=== PATIENT | female | born 1945 | race Caucasian/White ===

== ENCOUNTER 2023-06-06 21:31 | Inpatient (IN) | payer OTHER ==
[~2023-06-06] VITALS: Ht 167.6 cm; Wt 54.0 kg
[~2023-06-06 21:31] MED LIST: APIX5TAB4 PO; DIGO250T PO; DILT60TA3 PO; DOXY100C5 PO; FURO-150 PO; PRED20TA PO; PRO40 PO; TEMA15CA5 PO
[2023-06-06] MEDS ORDERED: ONDANSETRON HCL 4 MG/2 ML VIAL ONE (21:37)
[2023-06-06 21:52] VITALS: BP_SYST 140; PULSE 70; RESP 18; TEMP 98.3; O2SAT 96
[2023-06-06] MEDS ORDERED: NALOXONE HCL 2 MG/2 ML SYR IVP ONE (22:15)
[2023-06-06] MEDS ORDERED: ALBUTEROL SULFATE 0.083% 2.5 MG/3 ML VIAL.NEB INH ONE (22:15)
[2023-06-06] MEDS ORDERED: IPRATROPIUM BROM 0.5 MG/2.5 ML VIAL.NEB (ATROVENT) INH ONE (22:15)
[2023-06-06] MEDS ORDERED: ONDANSETRON HCL 4 MG/2 ML VIAL IVP ONE (22:15)
[2023-06-06] MEDS ORDERED: OLANZapine IntraMuscular 10 MG VIAL (FOR I.M. INJECTION ONLY) IM ONE (22:45)
[2023-06-06 22:53] LABS: BASOPHILS # (AUTO) 0.1 K/uL (0.0-0.2); BASOPHILS % (AUTO) 0.7 % (0.0-2.0); EOSINOPHILS % (AUTO) 0.1 % (0.0-4.0); HEMATOCRIT 46.5 % (36-48); HEMOGLOBIN 14.7 g/dL (12.0-16.0); LYMPHOCYTES # (AUTO) 1.8 K/uL (1.0-5.5); LYMPHOCYTES % (AUTO) 14.7 % (20.5-51.5); MEAN CORPUSCULAR HEMOGLOBIN 29 pg (27-31); MEAN CORPUSCULAR HGB CONC 32 % (32-36); MEAN CORPUSCULAR VOLUME 91 fL (79.0-98.0); MONOCYTES # (AUTO) 0.9 K/uL (0.0-1.0); MONOCYTES % (AUTO) 6.8 % (1.7-9.3); NEUTROPHILS # (AUTO) 9.7 K/uL (1.8-7.7); NEUTROPHILS % (AUTO) 77.7 % (40.0-70.0); PLATELET COUNT (AUTO) 360 K/uL (130-430); RED BLOOD CELL COUNT(AUTO) 5.14 MIL/uL (4.2-6.2); RED CELL DISTRIBUTION WIDTH 14.9 % (9.0-15.0); WHITE BLOOD COUNT (AUTO) 12.5 K/uL (4.8-10.8)
[2023-06-06 23:02] LABS: ALANINE AMINOTRANSFERASE 9 U/L (12-78); ALBUMIN 3.3 g/dL (3.4-4.8); ANION GAP 5 (5-15); ASPARTATE AMINOTRANSFERASE 20 U/L (10-37); CALCIUM 10.1 mg/dL (8.4-11.0); CARBON DIOXIDE 29 mmol/L (23-29); CHLORIDE 95 mmol/L (98-107); CREATININE 0.91 mg/dL (0.55-1.30); GLUCOSE 112 mg/dL (74-106); POTASSIUM 4.3 mmol/L (3.5-5.1); SODIUM SERUM 129 mmol/L (136-145); TOTAL BILIRUBIN 0.4 mg/dL (0.0-1.0); TOTAL PROTEIN, SERUM 8.1 g/dL (6.4-8.3); UREA NITROGEN, BLOOD 16 mg/dL (8-21)
[2023-06-06 23:04] LABS: BILIRUBIN,DIRECT 0.3 mg/dL (0.0-0.3); SALICYLATE 2 mg/dL (3-30)
[2023-06-06 23:09] LABS: INR 1.6 (0.8-1.2); PROTHROMBIN TIME 16.1 SECS (9.5-12.5)
[2023-06-06 23:59] LABS: BILIRUBIN,URINE 1+ (NEGATIVE); CLARITY/URINE CLEAR (CLEAR); COLOR,URINE YELLOW (YELLOW); GLUCOSE,URINE NEGATIVE (NEGATIVE); KETONES,URINE 1+ (NEGATIVE); LEUKOCYTE ESTERASE ,URINE TRACE (NEGATIVE); NITRITE, URINE NEGATIVE (NEGATIVE); PROTEIN URINE 1+ (NEGATIVE)
[2023-06-07 00:17] LABS: BLOOD, URINE TRACE (NEGATIVE)
[2023-06-07 00:26] LABS: ACETAMINOPHEN < 1 ug/mL (1-30)
[2023-06-07 00:37] LABS: BACTERIA,URINE FEW /HPF (None Seen)
[2023-06-07] MEDS ORDERED: HYDROcodone/ACETAMIN 10-325 MG TAB PO PRN (00:45)
[2023-06-07] MEDS ORDERED: ONDANSETRON HCL 4 MG/2 ML VIAL IVP PRN (00:45)
[2023-06-07] MEDS ORDERED: MORPHINE 2 MG/ML INJ. SYRINGE IVP PRN (00:45)
[2023-06-07] MEDS ORDERED: ACETAMINOPHEN 325 MG TABLET PO PRN (00:45)
[2023-06-07] MEDS ORDERED: methylPREDNISolone SOD SUCC/PF 62.5 MG/ML VIAL IVP ONE ×2 (00:45→06:00)
[2023-06-07] MEDS ORDERED: HYDROcodone/ACETAMIN 5-325 MG TAB (NORCO/ VICODIN) PO PRN (00:45)
[2023-06-07] MEDS ORDERED: cefTRIAXone 1 GM in D5W 50 ML IV ONE (00:45)
[2023-06-07] MEDS ORDERED: IPRATROPIUM BROM 0.5 MG/2.5 ML VIAL.NEB (ATROVENT) INH ONE (00:54)
[2023-06-07] MEDS ORDERED: ALBUTEROL SULFATE 0.083% 2.5 MG/3 ML VIAL.NEB INH ONE (00:54)
[2023-06-07 01:02] LABS: ABG O2 SAT% ESTIMATE 91.2 % (94.0-100.0); BLOOD GAS BASE EXCESS 0.7 mmol/L (-3.0-3.0); BLOOD GAS HCO3 27.1 mmol/L (21.0-27.0); BLOOD GAS PCO2 50.2 mmHg (35.0-45.0)
[2023-06-07] MEDS ORDERED: cefTRIAXone 1 GM VIAL ONE (01:08)
[2023-06-07] MEDS: DILTIAZEM HCL 60 MG TABLET PO SCH ×4 (01:11→23:34)
[2023-06-07] MEDS: DIGOXIN 0.25 MG TABLET PO SCH ×2 (01:12→09:21)
[2023-06-07 02:53] VITALS: BP_SYST 147; PULSE 88; O2SAT 93
[2023-06-07 03:52] LABS: COVID19 ANTIGEN SOFIA FIA NEGATIVE (NEGATIVE)
[2023-06-07 04:04] LABS: INFLUENZA TYPE A Negative (NEGATIVE); INFLUENZA TYPE B NEGATIVE (NEGATIVE)
[2023-06-07] MEDS ORDERED: AMPICILLIN SODIUM/SULBACTAM NA 3 GM VIAL IM SCH (06:00)
[2023-06-07 08:05] VITALS: O2SAT 94
[2023-06-07] MEDS: IPRATROPIUM/ALBUTEROL SULFATE 3 ML AMPUL.NEB (DUONEB) INH SCH ×3 (08:05→20:11)
[2023-06-07] MEDS: APIXABAN 2.5 MG TABLET PO SCH ×2 (10:04→23:33)
[2023-06-07 13:04] VITALS: O2SAT 94
[2023-06-07] MEDS: AMPICILLIN SODIUM/SULBACTAM NA 3 GM in NS 100 ML IV SCH (14:15)
[2023-06-07 23:00] VITALS: O2SAT 91
[2023-06-07] MEDS ORDERED: AMPICILLIN SODIUM/SULBACTAM NA 3 GM VIAL ONE (23:53)
[2023-06-08] VITALS (9 sets, daily range): BP systolic 136–153; PULSE 58–80; RESP 18–22; TEMP 97–97.7; O2SAT 89–98
[2023-06-08] MEDS: AMPICILLIN SODIUM/SULBACTAM NA 3 GM in NS 100 ML IV SCH ×2 (01:04→05:37)
[2023-06-08 06:49] LABS: BASOPHILS % (AUTO) 0.2 % (0.0-2.0); HEMATOCRIT 42.5 % (36-48); HEMOGLOBIN 13.7 g/dL (12.0-16.0); LYMPHOCYTES # (AUTO) 1.3 K/uL (1.0-5.5); LYMPHOCYTES % (AUTO) 8.1 % (20.5-51.5); MEAN CORPUSCULAR HEMOGLOBIN 29 pg (27-31); MEAN CORPUSCULAR HGB CONC 32 % (32-36); MEAN CORPUSCULAR VOLUME 89 fL (79.0-98.0); MONOCYTES # (AUTO) 0.4 K/uL (0.0-1.0); MONOCYTES % (AUTO) 2.4 % (1.7-9.3); NEUTROPHILS # (AUTO) 14.2 K/uL (1.8-7.7); NEUTROPHILS % (AUTO) 89.3 % (40.0-70.0); PLATELET COUNT (AUTO) 335 K/uL (130-430); RED BLOOD CELL COUNT(AUTO) 4.77 MIL/uL (4.2-6.2); RED CELL DISTRIBUTION WIDTH 14.8 % (9.0-15.0); WHITE BLOOD COUNT (AUTO) 15.9 K/uL (4.8-10.8)
[2023-06-08] MEDS: IPRATROPIUM/ALBUTEROL SULFATE 3 ML AMPUL.NEB (DUONEB) INH SCH ×3 (07:40→19:51)
[2023-06-08 07:55] LABS: ALANINE AMINOTRANSFERASE 9 U/L (12-78); ALBUMIN 2.7 g/dL (3.4-4.8); ANION GAP 10 (5-15); ASPARTATE AMINOTRANSFERASE 20 U/L (10-37); CALCIUM 10.2 mg/dL (8.4-11.0); CARBON DIOXIDE 27 mmol/L (23-29); CHLORIDE 96 mmol/L (98-107); CREATININE 0.87 mg/dL (0.55-1.30); GLUCOSE 107 mg/dL (74-106); POTASSIUM 4.8 mmol/L (3.5-5.1); SODIUM SERUM 133 mmol/L (136-145); TOTAL BILIRUBIN 0.4 mg/dL (0.0-1.0); TOTAL PROTEIN, SERUM 6.9 g/dL (6.4-8.3); UREA NITROGEN, BLOOD 22 mg/dL (8-21)
[2023-06-08 08:32] LABS: ERYTHROCYTE SEDIMENTATION RATE 39 MM/HR (0-20)
[2023-06-08] MEDS: DIGOXIN 0.25 MG TABLET PO SCH (08:47)
[2023-06-08] MEDS: DILTIAZEM HCL 60 MG TABLET PO SCH ×3 (08:47→20:06)
[2023-06-08] MEDS: APIXABAN 2.5 MG TABLET PO SCH ×2 (08:51→20:10)
[2023-06-08] MEDS: HYDROcodone/ACETAMIN 5-325 MG TAB (NORCO/ VICODIN) PO PRN ×2 (14:57→20:06)
[2023-06-08] MEDS: PIPERACILLIN/TAZO 2.25G/DEX-IS 50 ML IV SCH (19:41)
[2023-06-08] MEDS: predniSONE 20 MG TABLET PO SCH (20:06)
[2023-06-09] VITALS (8 sets, daily range): BP systolic 131–159; PULSE 63–70; RESP 16–20; TEMP 97.4–98.2; O2SAT 91–97
[2023-06-09] MEDS: PIPERACILLIN/TAZO 2.25G/DEX-IS 50 ML IV SCH ×4 (00:31→17:36)
[2023-06-09] MEDS: IPRATROPIUM/ALBUTEROL SULFATE 3 ML AMPUL.NEB (DUONEB) INH SCH ×4 (01:11→20:01)
[2023-06-09] MEDS: HYDROcodone/ACETAMIN 5-325 MG TAB (NORCO/ VICODIN) PO PRN ×3 (06:26→20:09)
[2023-06-09 06:40] LABS: BASOPHILS % (AUTO) 0.3 % (0.0-2.0); HEMATOCRIT 40.5 % (36-48); HEMOGLOBIN 13.2 g/dL (12.0-16.0); LYMPHOCYTES # (AUTO) 1.3 K/uL (1.0-5.5); LYMPHOCYTES % (AUTO) 12.6 % (20.5-51.5); MEAN CORPUSCULAR HEMOGLOBIN 29 pg (27-31); MEAN CORPUSCULAR HGB CONC 33 % (32-36); MEAN CORPUSCULAR VOLUME 89 fL (79.0-98.0); MONOCYTES # (AUTO) 0.3 K/uL (0.0-1.0); MONOCYTES % (AUTO) 2.6 % (1.7-9.3); NEUTROPHILS # (AUTO) 8.4 K/uL (1.8-7.7); NEUTROPHILS % (AUTO) 84.5 % (40.0-70.0); PLATELET COUNT (AUTO) 338 K/uL (130-430); RED BLOOD CELL COUNT(AUTO) 4.56 MIL/uL (4.2-6.2); RED CELL DISTRIBUTION WIDTH 14.7 % (9.0-15.0)
[2023-06-09 06:56] LABS: ANION GAP 8 (5-15); CALCIUM 9.9 mg/dL (8.4-11.0); CARBON DIOXIDE 29 mmol/L (23-29); CHLORIDE 97 mmol/L (98-107); CREATININE 0.81 mg/dL (0.55-1.30); GLUCOSE 116 mg/dL (74-106); POTASSIUM 4.6 mmol/L (3.5-5.1); SODIUM SERUM 134 mmol/L (136-145); UREA NITROGEN, BLOOD 17 mg/dL (8-21)
[2023-06-09] MEDS: predniSONE 20 MG TABLET PO SCH ×2 (09:33→20:09)
[2023-06-09] MEDS: APIXABAN 2.5 MG TABLET PO SCH ×2 (09:35→20:14)
[2023-06-09] MEDS: DIGOXIN 0.25 MG TABLET PO SCH (09:38)
[2023-06-09] MEDS: DILTIAZEM HCL 60 MG TABLET PO SCH ×3 (09:38→20:08)
[2023-06-09 11:31] LABS: ERYTHROCYTE SEDIMENTATION RATE 29 MM/HR (0-20)
[2023-06-10] VITALS (7 sets, daily range): BP systolic 127–136; PULSE 61–71; RESP 18–20; TEMP 97.7–98.2; O2SAT 88–98
[2023-06-10] MEDS: PIPERACILLIN/TAZO 2.25G/DEX-IS 50 ML IV SCH ×3 (00:19→11:29)
[2023-06-10 06:22] LABS: BASOPHILS % (AUTO) 0.2 % (0.0-2.0); HEMATOCRIT 40.8 % (36-48); HEMOGLOBIN 13.2 g/dL (12.0-16.0); LYMPHOCYTES # (AUTO) 1.2 K/uL (1.0-5.5); LYMPHOCYTES % (AUTO) 14.6 % (20.5-51.5); MEAN CORPUSCULAR HEMOGLOBIN 29 pg (27-31); MEAN CORPUSCULAR HGB CONC 33 % (32-36); MEAN CORPUSCULAR VOLUME 89 fL (79.0-98.0); MONOCYTES # (AUTO) 0.3 K/uL (0.0-1.0); MONOCYTES % (AUTO) 3.1 % (1.7-9.3); NEUTROPHILS % (AUTO) 82.1 % (40.0-70.0); PLATELET COUNT (AUTO) 332 K/uL (130-430); RED CELL DISTRIBUTION WIDTH 15.4 % (9.0-15.0); WHITE BLOOD COUNT (AUTO) 8.5 K/uL (4.8-10.8)
[2023-06-10] MEDS: HYDROcodone/ACETAMIN 5-325 MG TAB (NORCO/ VICODIN) PO PRN (06:29)
[2023-06-10 06:40] LABS: ANION GAP 8 (5-15); CARBON DIOXIDE 28 mmol/L (23-29); CHLORIDE 98 mmol/L (98-107); CREATININE 0.69 mg/dL (0.55-1.30); GLUCOSE 122 mg/dL (74-106); POTASSIUM 4.5 mmol/L (3.5-5.1); SODIUM SERUM 134 mmol/L (136-145); UREA NITROGEN, BLOOD 11 mg/dL (8-21)
[2023-06-10] MEDS: IPRATROPIUM/ALBUTEROL SULFATE 3 ML AMPUL.NEB (DUONEB) INH SCH ×3 (07:17→13:42)
[2023-06-10 07:59] LABS: ERYTHROCYTE SEDIMENTATION RATE 25 MM/HR (0-20)
[2023-06-10] MEDS: DIGOXIN 0.25 MG TABLET PO SCH (08:31)
[2023-06-10] MEDS: predniSONE 20 MG TABLET PO SCH (08:32)
[2023-06-10] MEDS: DILTIAZEM HCL 60 MG TABLET PO SCH ×2 (08:32→14:04)
[2023-06-10] MEDS: APIXABAN 2.5 MG TABLET PO SCH (08:34)
[2023-06-10] MEDS ORDERED: PRED20TA PO ×3 (08:59)
[2023-06-10] MEDS ORDERED: AUG875 PO (08:59)
[2023-06-14 20:06] LABS: MYCOPLASMA PNEUMONIAE IgM <770 U/mL (0-769)
[2023-06-16 14:07] LABS: ASPERGILLUS FLAVUS Negative (Neg:<1:1); ASPERGILLUS FUMIGATUS Negative (Neg:<1:1)
== END 2023-06-10 16:18 | disposition home health service (06) | DRG 177 ==
LOC: SED 21:31 → STU 06-07 00:39
PROVIDERS: ADMIT Family Medicine; ATTEND Family Medicine
PROC: 4A00X4Z Measurement of Central Nervous Electrical Activity, External Approach (ICD-10-PCS; principal; 2023-06-10)
DX: J69.0 Pneumonitis due to inhalation of food and vomit (principal); J96.21 Acute and chronic respiratory failure with hypoxia; J44.1 Chronic obstructive pulmonary disease with (acute) exacerbation; E87.1 Hypo-osmolality and hyponatremia; N39.0 Urinary tract infection, site not specified; Z59.00 Homelessness unspecified; J44.0 Chronic obstructive pulmonary disease with (acute) lower respiratory infection; Z20.822 Contact with and (suspected) exposure to COVID-19; K21.9 Gastro-esophageal reflux disease without esophagitis; D72.829 Elevated white blood cell count, unspecified; I10 Essential (primary) hypertension; E88.09 Other disorders of plasma-protein metabolism, not elsewhere classified; I48.91 Unspecified atrial fibrillation; Z79.01 Long term (current) use of anticoagulants
CPT/HCPCS: 36415; 36600; 70450-TC; 71045; 76376; 80048; 80053; 80076; 81000; 81001; 81015; 82803; 82962; 83605; 84484; 85025; 85610-TC; 85651-TC; 85730-TC; 86606; 86738; 87040; 87086; 87305; 93005; 94640; 94760; 95816; 96374; 96375; 97116-GP; 97530-GP; 99291; G0378; G0480; G0481; J0295; J0696; J2270; J2405; J2543; J2930; J3490; J7060; J7512